=== PATIENT | female | born 2000 ===

== ENCOUNTER 2018-07-24 16:56 | Emergency (ER) | payer OTHER ==
[2018-07-24 17:06] VITALS: BP 108/73
--- NOTE | 2018-07-24 17:52 | UC ---
Shoulder Pain HPI - HPI Summary HPI Summary: PATIENT STATES SHE WAS WOKEN FROM SLEEP LAST NIGHT WITH RIGHT SHOULDER PAIN. SHE REPORTS HAVING MULTIPLE EPISODES OF SPONTANEOUS SHOULDER DISLOCATIONS WHILE IN HIGH SCHOOL. MOST RECENT EPISODE WAS 2 YEARS AGO. STATES HER MOM WOULD JUST POP IT BACK INTO PLACE. SHE THINKS HER SHOULDER IS AGAIN DISLOCATED TODAY. SHE STATES SURGERY WAS RECOMMENDED AT ONE TIME BUT SHE DID NOT FOLLOW- UP ON THIS. - History of Current Complaint Chief Complaint: UCUpperExtremity Stated Complaint: SHOULDER INJURY Time Seen by Provider: 07/24/18 17:29 Hx Obtained From: Patient Hx Last Menstrual Period: Jul 10, 2018 Onset/Duration: Sudden Onset, Lasting Hours, Still Present Timing: Constant Severity Initially: Moderate Severity Currently: Moderate Location Of Pain: Is Discrete @ - RIGHT SHOULDER Pain Intensity: 7 Pain Scale Used: 0-10 Numeric Character: Sharp, Aching Aggravating Factor(s): Movement Alleviating Factor(s): Nothing Associated Signs And Symptoms: Positive: Negative Related History: Dominant Hand Right - Allergies/Home Medications Allergies/Adverse Reactions: Allergies Allergy/AdvReac Type Severity Reaction Status Date / Time Penicillins Allergy Difficulty Verified 07/24/18 17:07 Breathing Home Medications: Home Medications NK [No Home Medications Reported] 07/24/18 [History Confirmed 07/24/18] PMH/Surg Hx/FS Hx/Imm Hx Previously Healthy: Yes - Surgical History Surgical History: None - Family History Known Family History: Positive: Non-Contributory - Social History Alcohol Use: Occasionally Substance Use Type: None Smoking Status (MU): Never Smoked Tobacco Review of Systems All Other Systems Reviewed And Are Negative: Yes Constitutional: Positive: Negative Skin: Positive: Negative Respiratory: Positive: Negative Cardiovascular: Positive: Negative Gastrointestinal: Positive: Negative Musculoskeletal: Positive: Arthralgia, Decreased ROM Physical Exam Triage Information Reviewed: Yes Appearance: Well-Appearing, No Pain Distress, Well-Nourished Vital Signs: Initial Vital Signs Temp 98.7 F 07/24/18 17:03 Pulse 62 07/24/18 17:03 Resp 12 07/24/18 17:03 BP 108/73 07/24/18 17:03 Pulse Ox 100 07/24/18 17:03 Vital Signs Reviewed: Yes Eyes: Positive: Conjunctiva Clear ENT: Positive: Hearing grossly normal Neck: Positive: Supple Respiratory: Positive: No respiratory distress, No accessory muscle use Cardiovascular: Positive: Pulses Normal Abdomen Description: Positive: Soft Musculoskeletal: Positive: No Edema, ROM Limited @ - RIGHT SHOULDER ROM LIMITED BUT NOT ABSENT, Other: - TTP DIFFUSELY OVER RIGHT SHOULDER BUT MOSTLY OVER SCAPULA. NO SHOULDER DISLOCATION. Neurological: Positive: Alert Psychological: Positive: Age Appropriate Behavior Skin: Negative: Rashes Diagnostics - Radiology RIGHT SHOULDER XRAY Radiology Interpretation Completed By: Radiologist Summary of Radiographic Findings: FINDINGS SUGGESTIVE OF A MILD HILL-SACHS FRACTURE. Shoulder Course/Dx - Course Course Of Treatment: ON EXAMINATION PATIENT'S SHOULDER IS NOT DISLOCATED. SHE STATES THAT WHEN SHE WAS BEING POSITIONED FOR X-RAY SHE HEARD A POP. IT IS POSSIBLE THAT SHE REDUCED HER DISLOCATION AT THIS TIME. GIVEN HER REPORTED HISTORY OF RECURRENT SHOULDER DISLOCATIONS HAVE REFERRED TO ORTHOPEDICS FOR FURTHER EVALUATION. I ALSO RECOMMENDED PHYSICAL THERAPY TO HELP STRENGTHEN THE MUSCLES THAT SUPPORT THAT JOINT. SLING FOR COMFORT. ADVISED TO DISCUSS POSSIBLE CONNECTIVE TISSUE DISORDER WITH HER PCP. Assessment/Plan: OFFICIAL RADIOLOGY REPORT RETURNED AFTER PT DISCHARGE. FINDINGS SUGGESTIVE OF A MILD HILL-SACHS FRACTURE. I CALLED PT AND NOTIFIED HER OF THIS FINDING. SHE WILL CALL ORTHO Thursday FOR AN APPT ADVISED. - Differential Dx/Diagnosis Provider Diagnosis: Right shoulder pain Discharge - Sign-Out/Discharge Documenting (check all that apply): Patient Departure All imaging exams completed and their final reports reviewed: Yes - Discharge Plan Condition: Stable Disposition: HOME Patient Education Materials: Shoulder Separation Exercises (GEN), Shoulder Pain (ED) Referrals: Andrey Fall MD [Medical Doctor] - 1 Week Additional Instructions: AT THE TIME OF EVALUATION YOUR SHOULDER WAS NOT DISLOCATED. IT'S POSSIBLE THAT YOU POPPED IT IN ON YOUR OWN WHILE YOU WERE BEING POSITIONED FOR X-RAY. WEAR THE SLING NEEDED FOR COMFORT TO OFFLOAD PRESSURE FROM YOUR SHOULDER JOINT. PHYSICAL THERAPY REFERRAL PROVIDED TODAY. THIS CAN BE QUITE HELPFUL IN STRENGTHENING THE MUSCLES THAT STABILIZE YOUR SHOULDER. GIVEN YOUR HISTORY OF RECURRENT SHOULDER DISLOCATIONS I WOULD STRONGLY RECOMMEND YOU FOLLOW-UP WITH AN ORTHOPEDIST TO FURTHER DISCUSS TREATMENT. I WOULD ALSO CONSIDER FOLLOWING UP WITH YOUR PRIMARY CARE PHYSICIAN TO DISCUSS EVALUATION FOR A POSSIBLE CONNECTIVE TISSUE DISORDER. GO TO THE EMERGENCY ROOM IF YOU DISLOCATE YOUR SHOULDER AGAIN OR IF YOU DEVELOP NUMBNESS, TINGLING OR COLOR CHANGE IN YOUR HAND. - Billing Disposition and Condition Condition: STABLE Disposition: Home
== END 2018-07-24 18:04 | disposition home or self-care (01) ==
LOC: UCEAST 16:56
DX: M25.511 Pain in right shoulder (principal); Z88.0 Allergy status to penicillin
CPT/HCPCS: 99202; G0463

== ENCOUNTER 2018-07-25 21:45 | Emergency (ER) | payer SELFPAY ==
--- NOTE | 2018-07-25 23:45 | ED ---
Lower Extremity - HPI Summary HPI Summary: 17 year old female presents with left knee dislocation. She states that it took her a half an hour to get the knee back in. She states is not currently dislocated. She has history of multiple dislocations to her knees and shoulder. She is follow-up with ortho this week as she states she just dislocated her shoulder a couple days ago. She states that when she tries to put weight on the knee feels like it give out. She denies any numbness or tingling. - History of Current Complaint Chief Complaint: EDExtremityLower Stated Complaint: LEFT KNEE INJURY Time Seen by Provider: 07/25/18 23:37 Hx Last Menstrual Period: Jul 10, 2018 Pain Intensity: 7 - Allergies/Home Medications Allergies/Adverse Reactions: Allergies Allergy/AdvReac Type Severity Reaction Status Date / Time Penicillins Allergy Difficulty Verified 07/24/18 17:07 Breathing Home Medications: Home Medications Naproxen Sodium [Aleve] 2 tab PO Q12HR 07/25/18 [History Confirmed 07/25/18] PMH/Surg Hx/FS Hx/Imm Hx Respiratory History: Denies: Hx Asthma Infectious Disease History: No Infectious Disease History: Denies: Traveled Outside the [place] in Last 30 Days - Family History Known Family History: Positive: Non-Contributory - Social History Alcohol Use: Occasionally Substance Use Type: Reports: None Smoking Status (MU): Never Smoked Tobacco Review of Systems Negative: Fever Negative: Chest Pain Negative: Shortness Of Breath Positive: Myalgia - left knee pain All Other Systems Reviewed And Are Negative: Yes Physical Exam Triage Information Reviewed: Yes Vital Signs On Initial Exam: Initial Vitals Temp Pulse Resp BP Pulse Ox 99.0 F 80 16 117/58 95 07/25/18 21:46 07/25/18 21:46 07/25/18 21:46 07/25/18 21:46 07/25/18 21:46 Vital Signs Reviewed: Yes Appearance: Positive: Well-Appearing Skin: Positive: Warm, Dry Head/Face: Positive: Normal Head/Face Inspection Eyes: Positive: Normal, Conjunctiva Clear ENT: Positive: Pharynx normal Respiratory/Lung Sounds: Positive: Clear to Auscultation, Breath Sounds Present Cardiovascular: Positive: Normal, RRR Musculoskeletal: Positive: Strength/ROM Intact - left knee, Other - minimial tenderness left patella, good pulses Neurological: Positive: Normal Psychiatric: Positive: Normal Diagnostics - Vital Signs Vital Signs Temp Pulse Resp BP Pulse Ox 07/25/18 21:46 99.0 F 80 16 117/58 95 - Laboratory Lab Statement: Any lab studies that have been ordered have been reviewed, and results considered in the medical decision making process. - Radiology knee Radiology Interpretation Completed By: ED Physician Summary of Radiographic Findings: no fracture Lower Extremity Course/Dx - Course Course Of Treatment: 17 year old female presents with left knee dislocation. She states that it took her a half an hour to get the knee back in. She states is not currently dislocated. She has history of multiple dislocations to her knees and shoulder. She is follow-up with ortho this week as she states she just dislocated her shoulder a couple days ago. She states that when she tries to put weight on the knee feels like it give out. She denies any numbness or tingling On exam tenderness over left patella. neurovascular intact. X-ray shows no current dislocation. Gave knee immobilizer. Told to follow-up with orthopedic. Patient understands agrees with plan. - Diagnoses Differential Diagnosis/HQI/PQRI: Positive: Fracture (Closed), Sprain, Strain Provider Diagnoses: Left knee dislocation Discharge - Sign-Out/Discharge Documenting (check all that apply): Patient Departure Patient Received Moderate/Deep Sedation with Procedure: No - Discharge Plan Condition: Good Disposition: HOME Patient Education Materials: Knee Dislocation (ED) Referrals: No Primary Care Phys,NOPCP [Primary Care Provider] - Additional Instructions: Use immobilizer as meeded Ice, elevate, Ibuprofen or Tylenol every 6 hours for pain Follow up with ortho Return to ED if develop or any new or worsening symptoms - Billing Disposition and Condition Condition: GOOD Disposition: Home
[2018-07-25 23:57] VITALS: BP 110/66
== END 2018-07-25 23:56 | disposition home or self-care (01) ==
LOC: ED 21:45
DX: S83.105A Unspecified dislocation of left knee, initial encounter (principal); X58.XXXA Exposure to other specified factors, initial encounter; Y92.9 Unspecified place or not applicable; Z88.0 Allergy status to penicillin
CPT/HCPCS: 99282

== ENCOUNTER 2019-04-18 16:41 | Emergency (ER) | payer OTHER ==
[2019-04-18 17:18] VITALS: BP 111/70
[2019-04-18] MEDS ORDERED: Acetaminophen TAB* 325 MG PO ONE (18:17)
--- NOTE | 2019-04-18 18:49 | UC ---
Dizzy HPI HPI Summary: 18 yo female got up quickly from toilet bowl this am and passed out stiking her left occiput when she woke up she attempted to get up and passed out again has a ATWOOD (holocranial0 Has photo and phonophobia no neck pain no CP/SOB/palpitations no prior hx of faints today has felt a little weak and dizzy - History Of Current Complaint Chief Complaint: UCHeadInjury Stated Complaint: HEADACHE FAINTED Time Seen by Provider: 04/18/19 18:07 Hx Obtained From: Patient Hx Last Menstrual Period: Jul 10, 2018 Onset/Duration: Sudden Onset, Other Severity Initially: Severe Severity Currently: Severe Pain Intensity: 8 Pain Scale Used: 0-10 Numeric Character: Lightheaded, Dizzy Aggravating Factor(s): Nothing Alleviating Factor(s): Rest Associated Signs And Symptoms: Positive: Tinnitus - slight, Decreased Oral Intake. Negative: Nausea, Vomiting, Diaphoresis, Chest Pain, SOB, Palpitations , Unsteady Gait, Visual Changes, Change In Medication, Change In Diet, OTC Medications - Allergies/Home Medications Allergies/Adverse Reactions: Allergies Allergy/AdvReac Type Severity Reaction Status Date / Time Penicillins Allergy Difficulty Verified 07/24/18 17:07 Breathing PMH/Surg Hx/FS Hx/Imm Hx Previously Healthy: Yes - Surgical History Surgical History: None - Family History Known Family History: Positive: Non-Contributory - Social History Alcohol Use: Occasionally Substance Use Type: None Smoking Status (MU): Never Smoked Tobacco Review of Systems All Other Systems Reviewed And Are Negative: Yes Constitutional: Positive: Negative Skin: Positive: Negative Eyes: Positive: Photophobia ENT: Positive: Negative Respiratory: Positive: Negative Cardiovascular: Positive: Negative Gastrointestinal: Positive: Negative Genitourinary: Positive: Negative Motor: Positive: Negative Neurovascular: Positive: Negative Musculoskeletal: Positive: Negative Neurological: Positive: Headache Psychological: Positive: Negative Physical Exam Triage Information Reviewed: Yes Appearance: Well-Appearing, No Pain Distress, Well-Nourished Vital Signs: Initial Vital Signs Temp 99.9 F 04/18/19 16:50 Pulse 74 04/18/19 16:50 Resp 22 04/18/19 16:50 BP 117/59 04/18/19 16:50 Pulse Ox 100 04/18/19 16:50 Vital Signs Reviewed: Yes Eyes: Positive: Conjunctiva Clear, Other: - EOMI/PERRL ENT: Positive: Hearing grossly normal, Uvula midline. Negative: Nasal congestion, Nasal drainage, Tonsillar swelling, Tonsillar exudate, Trismus, Muffled voice, Hoarse voice Dental Exam: Normal Neck: Positive: Supple, Nontender, No Lymphadenopathy Respiratory: Positive: Lungs clear, Normal breath sounds, No respiratory distress, No accessory muscle use Cardiovascular: Positive: RRR, No Murmur Musculoskeletal: Positive: ROM Intact, No Edema Neurological Exam: Normal Neurological: Positive: Alert, Other: - cn2-12 intact, GCS 15/15, strength 5/5/ , (-) Rhomberg, normal gait, brisk and symmetrical knee jerks Psychological Exam: Normal Skin Exam: Normal Diagnostics - Radiology No standard instances Radiology Interpretation Completed By: Radiologist Summary of Radiographic Findings: CT brain: negative - EKG Cardiac Rate: NL Cardiac Rhythm: Sinus: Normal Ectopy: None ST Segment: Normal Re-Evaluation - Re-Evaluation First Eval Re-Evaluation Time: 19:46 Change: Improved - headache decreased-ambulating without difficulty Dizzy Course/Dx - Differential Dx/Diagnosis Provider Diagnosis: Syncope, Concussion Discharge ED - Sign-Out/Discharge Documenting (check all that apply): Patient Departure All imaging exams completed and their final reports reviewed: Yes - Discharge Plan Condition: Stable Disposition: HOME Patient Education Materials: Concussion (ED), Syncope (DC) Referrals: No Primary Care Phys,NOPCP [Primary Care Provider] - [facility] [place] PHYSICIAN REFERRAL [Outside] - 1 Week (if not better) Additional Instructions: rest ice tylenol ekg and CT normal blood work pending recheck for new or worsening symptoms - Billing Disposition and Condition Condition: STABLE Disposition: Home
[2019-04-19 11:34] LABS: ABS Eosinophils 0.1 10^3/ul (0-0.6); ABS Lymphocytes 1.4 10^3/ul (1.0-4.8); ABS Neutrophils 4.2 10^3/ul (1.5-7.7); Eosinophil % 1.2 %; Hematocrit 39 % (35-47); Lymphocyte % 20.6 %; Mean Corpuscular HGB Conc 34 g/dL (31-36); Mean Corpuscular Hemoglobin 28 pg (27-31); Mean Corpuscular Volume 82 fL (80-97); Mean Platelet Volume 10.1 fL (7.4-10.4); Platelet Count 246 10^3/uL (150-450); Red Cell Distribution Width 17 % (10-15); White Blood Count 6.7 10^3/uL (3.5-10.8)
[2019-04-19 11:43] LABS: BUN/Creatinine Ratio 22.9 (8-20); Calcium 9.4 mg/dL (8.6-10.3); EGFR African American 129.1 (>60); EGFR Non-African American 106.7 (>60); Potassium 3.9 mmol/L (3.5-5.0)
--- NOTE | 2019-04-19 18:10 | UC ---
- Progress Note Progress Note: labs wnl, follow up with PCP for further work up. -Tati Byers PAC Course/Dx - Diagnoses Provider Diagnoses: Syncope, Concussion Discharge ED - Sign-Out/Discharge Documenting (check all that apply): Patient Departure All imaging exams completed and their final reports reviewed: Yes - Discharge Plan Condition: Stable Disposition: HOME Patient Education Materials: Syncope (DC), Concussion (ED) Forms: *School Release Referrals: [facility] [place] [facility]IAN REFERRAL [Outside] - 1 Week (if not better) No Primary Care Phys,NOPCP [Primary Care Provider] - Additional Instructions: rest ice tylenol ekg and CT normal blood work pending recheck for new or worsening symptoms - Billing Disposition and Condition Condition: STABLE Disposition: Home
== END 2019-04-18 20:15 | disposition home or self-care (01) ==
LOC: UCEAST 16:41
DX: R55 Syncope and collapse (principal); S06.0X0A Concussion without loss of consciousness, initial encounter; H53.149 Visual discomfort, unspecified; Z88.0 Allergy status to penicillin; X58.XXXA Exposure to other specified factors, initial encounter; Y92.9 Unspecified place or not applicable
CPT/HCPCS: 36415; 70450; 80048; 81003; 84702; 85025; 99202; A9270-GY; G0463

== ENCOUNTER 2019-04-29 20:02 | Emergency (ER) | payer OTHER ==
[2019-04-29 20:17] VITALS: BP 109/71
[2019-04-29] MEDS ORDERED: Ondansetron ODT TAB* 4 MG PO ONE (20:35)
--- NOTE | 2019-04-29 20:41 | UC ---
Abdominal Pain Female HPI - HPI Summary HPI Summary: 18-year-old female comes in with a chief complaint of abdominal pain. This started about an hour ago. It's diffuse. It's an 8 out of 10. She does have some nausea. She has had a fever. 2 days ago patient woke up with a runny nose and Diffuse generalized headache. She also has a sore throat. Today she went to her [facility] and was diagnosed with sinusitis and started on a azithromycin. She took 2 pills of a azithromycin about 3 hours ago. The abdominal pain started 1 hour ago. Denies any urinary symptoms or change in bowel. On April 18, 2019 patient struck her head and had a negative head CT. She had a diffuse generalized headache until 5 days ago. Since the injury the headache gradually dissipated until it was gone 5 days ago. For 2 days she was completely asymptomatic of a headache. Today she has a headache that's an 8 out of 10 and diffuse. No photophobia. She does have some neck pain. - History of Current Complaint Chief Complaint: UCAbdominalPain Stated Complaint: STOMACH PAIN, HEADACHE Time Seen by Provider: 04/29/19 20:12 Hx Last Menstrual Period: 04/24/19 Pain Intensity: 8 Allergies/Adverse Reactions: Allergies Allergy/AdvReac Type Severity Reaction Status Date / Time amoxicillin Allergy Difficulty Verified 04/29/19 20:19 Breathing clavulanic acid Allergy Difficulty Verified 04/29/19 20:19 [From Augmentin] Breathing Penicillins Allergy Difficulty Verified 07/24/18 17:07 Breathing Home Medications: Home Medications Azithromyxin ORLY (NF) [Z-Orly (Zithromax) 250 mg tabs #6] 2 tab PO .TODAY, THEN 1 DAILY 04/29/19 [History Confirmed 04/29/19] Triamcinolone NASAL SPRAY* [Nasacort AQ Nasal [place]*] 1 puff NASAL DAILY WITH MEAL 04/29/19 [History Confirmed 04/29/19] PMH/Surg Hx/FS Hx/Imm Hx Previously Healthy: Yes Other Neurological History: CONCUSSION - Surgical History Surgical History: None - Family History Known Family History: Positive: Non-Contributory - Social History Alcohol Use: None Substance Use Type: None Smoking Status (MU): Never Smoked Tobacco Review of Systems All Other Systems Reviewed And Are Negative: Yes Constitutional: Positive: Fever, Other - SEE HPI Skin: Positive: Negative Eyes: Positive: Negative ENT: Positive: Sore Throat, Nasal Discharge, Sinus Congestion Respiratory: Positive: Negative Cardiovascular: Positive: Negative Gastrointestinal: Positive: Abdominal Pain, Nausea Genitourinary: Positive: Negative Motor: Positive: Negative Neurovascular: Positive: Negative Musculoskeletal: Positive: Negative Neurological: Positive: Negative Psychological: Positive: Negative Is Patient Immunocompromised?: No Physical Exam Triage Information Reviewed: Yes Appearance: Well-Nourished, Ill-Appearing - MILD, Pain Distress - MILD Vital Signs: Initial Vital Signs Temp 100.0 F 04/29/19 20:10 Pulse 77 04/29/19 20:10 Resp 18 04/29/19 20:10 BP 109/71 04/29/19 20:10 Pulse Ox 98 04/29/19 20:10 Vital Signs Reviewed: Yes Eye Exam: Normal Eyes: Positive: Conjunctiva Clear ENT: Positive: Pharyngeal erythema, Nasal congestion, TMs normal - No hemotympanum Neck: Positive: Supple Respiratory: Positive: Lungs clear, Normal breath sounds, No respiratory distress Cardiovascular: Positive: RRR Musculoskeletal: Positive: Strength Intact, ROM Intact Neurological: Positive: Alert, Muscle Tone Normal Psychological: Positive: Age Appropriate Behavior Skin Exam: Normal Abd Pain Female Course/Dx - Course Course Of Treatment: In clinic I gave the patient Zofran 4 mg ODT. Her abdominal pain decreased to a 6 out of 10 from an 8 out of 10. Who is worst around the umbilicus but also the right lower quadrant., I am Unable to completely rule out appendicitis here in clinic. Patient also has a diffuse headache low-grade fever posterior neck stiffness and I cannot rule out meningitis. Patient first came here to clinic she was in moderate to severe pain. Her pain has decreased however I recommended going to the emergency department for further evaluation and care. - Differential Dx/Diagnosis Provider Diagnosis: Abdominal pain, Headache, Fever Discharge ED - Sign-Out/Discharge Documenting (check all that apply): Patient Departure All imaging exams completed and their final reports reviewed: No Studies - Discharge Plan Condition: Stable Disposition: HOME-RECOMMEND TO ED Patient Education Materials: Acute Abdominal Pain (ED) Referrals: [facility] @ [Outside] Additional Instructions: GO DIRECTLY TO THE EMERGENCY DEPARTMENT FOR FURTHER EVALUATION OF YOUR ABDOMINAL PAIN, FEVER AND HEADACHE. - Billing Disposition and Condition Condition: STABLE Disposition: Home-Recommend to ED
== END 2019-04-29 21:32 | disposition home health service (06) ==
LOC: UCEAST 20:02
DX: R10.84 Generalized abdominal pain (principal); R51 Headache; R50.9 Fever, unspecified; R11.0 Nausea; M54.2 Cervicalgia; J02.9 Acute pharyngitis, unspecified; J34.89 Other specified disorders of nose and nasal sinuses; Z88.0 Allergy status to penicillin
CPT/HCPCS: 81003; 84702; 87651; 99212; A9270-GY; G0463

== ENCOUNTER 2019-04-29 21:44 | Emergency (ER) | payer SELFPAY ==
--- NOTE | 2019-04-30 00:21 | ED ---
Complex/Multi-Sys Presentation - HPI Summary HPI Summary: This pt is a 18 Y/O F presenting to [facility] with a CC of abdominal pain that is currently rated a 7/10 in severity. She states that two weeks ago on 04/18/19 she received a concussion after fainting in her bathroom and hitting her head on the floor. She states that she was feeling better until 04/27/19 when she woke up at 0300 and had a sore throat, chills, and ringing in her ears. She was diagnosed with a sinus infection and was given a Z-pack from the CC. Today she states that she started to have abdominal pains around her umbilical region 2 hours after taking her ABx. She also states that the ringing in her ears is increasing and she has been nauseas since she woke up this morning. She stats that she had a fever of 100 F 1 hour [employer]. She denies any diarrhea and vomiting. She has no aggravating or alleviating symptoms and has no pertinent PMHx. She states that she does not drink or use any substances. - History Of Current Complaint Chief Complaint: EDAbdPain Hx Obtained From: Patient Onset/Duration: Sudden Onset, Still Present, Worse Since - today Timing: Constant Severity Currently: Moderate - 7/10 Severity Initially: Mild Location: Pain At: - umbilical region Aggravating Factor(s): nothing Alleviating Factor(s): nothing Associated Signs And Symptoms: Positive: Headache, Nausea, Abdominal Pain - umbilical, Fever - 100 F, Other - sore throat, chills, ringing in her ears. Negative: Vomiting, Diarrhea - Allergies/Home Medications Allergies/Adverse Reactions: Allergies Allergy/AdvReac Type Severity Reaction Status Date / Time amoxicillin Allergy Difficulty Verified 04/29/19 20:19 Breathing clavulanic acid Allergy Difficulty Verified 04/29/19 20:19 [From Augmentin] Breathing Penicillins Allergy Difficulty Verified 07/24/18 17:07 Breathing PMH/Surg Hx/FS Hx/Imm Hx Previously Healthy: Yes Endocrine/Hematology History: Denies: Hx Diabetes, Hx Thyroid Disease Cardiovascular History: Denies: Hx Hypertension Respiratory History: Denies: Hx Asthma, Hx Chronic Obstructive Pulmonary Disease (COPD) GI History: Denies: Hx Ulcer - Surgical History Surgical History: None - Immunization History Immunizations Up to Date: Yes Infectious Disease History: No Infectious Disease History: Denies: Hx Hepatitis, Hx Human Immunodeficiency Virus (HIV), Traveled Outside the [place] in Last 30 Days - Family History Known Family History: Positive: Other - Breast CA Negative: Hypertension - Social History Occupation: Student - [employer] Lives: Dormitory/Roommates Alcohol Use: None Hx Substance Use: No Substance Use Type: Reports: None Hx Tobacco Use: No Smoking Status (MU): Never Smoked Tobacco Review of Systems Positive: Fever - 100 F, Chills ENT: Other - ear ringing Positive: Sore Throat Positive: Abdominal Pain - umbilical region , Nausea. Negative: Vomiting, Diarrhea Positive: Headache All Other Systems Reviewed And Are Negative: Yes Physical Exam - Summary Physical Exam Summary: Appearance: Well-appearing, Well-nourished, lying in bed comfortably Skin: Warm, dry, no obvious rash Eyes: sclera anicteric, no conjunctival pallor ENT: mucous membranes moist, pharynx appears normal Neck: Supple, nontender Respiratory: Clear to auscultation, no signs of respiratory distress Cardiovascular: Normal S1, S2. No murmurs. Normal distal pulses in tibial and radial bilaterally. Abdomen: Soft, nontender, normal active bowel sounds present Musculoskeletal: Normal, Strength/ROM Intact Neurological: A&Ox3, awake and alert, mentation is normal, speech is fluent and appropriate Psychiatric: affect is normal, does not appear anxious or depressed Triage Information Reviewed: Yes Vital Signs On Initial Exam: Initial Vitals Temp Pulse Resp BP Pulse Ox 99.3 F 88 18 130/86 98 04/29/19 21:47 04/29/19 21:47 04/29/19 21:47 04/29/19 21:47 04/29/19 21:47 Vital Signs Reviewed: Yes Procedures - Sedation Patient Received Moderate/Deep Sedation with Procedure: No Diagnostics - Vital Signs Vital Signs Temp Pulse Resp BP Pulse Ox 04/29/19 23:56 97.7 F 80 18 128/71 98 04/29/19 21:47 99.3 F 88 18 130/86 98 - Laboratory Result Diagrams: 04/30/19 00:48 04/30/19 01:35 Lab Statement: Any lab studies that have been ordered have been reviewed, and results considered in the medical decision making process. - Radiology CXR Radiology Interpretation Completed By: ED Physician Summary of Radiographic Findings: No acute processes. Pending offical review. Complex Multi-Symp Course/Dx Course Of Treatment: This pt is a 18 Y/O F presenting to [facility] with a CC of abdominal pain that is currently rated a 7/10 in severity. She states that two weeks ago on 04/18/19 she received a concussion after fainting in her bathroom and hitting her head on the floor. She states that she was feeling better until 04/27/19 when she woke up at 0300 and had a sore throat, chills, and ringing in her ears. She was diagnosed with a sinus infection and was given a Z-pack from the CC. Her PE found no abnormalities. She was given Meclizine and Zofran during her ED course. Her CXR found no acute processes. She has abnormal labratory values in the following areas: WBC, RDW, Absolute neuts and monos, Lactic Acid, C-Reactive proteins, Globulin. She did not have any abdominal pain until after taking azithromycin, prescribed for her URI. I suspect the macrolide is causing the pain. I do not think she has appendicitis or some other more serious process. She will be discharged home with a Dx of a URI, post-concussive symptoms, and acute abdominal pain. - Diagnoses Provider Diagnoses: URI (upper respiratory infection), Acute abdominal pain, Post-concussion syndrome Discharge ED - Sign-Out/Discharge Documenting (check all that apply): Patient Departure - Discharge Plan Condition: Good Disposition: HOME Prescriptions: Cefdinir cap* [Cefdinir 300 MG cap (NF)] 300 mg PO BID #20 cap Patient Education Materials: Upper Respiratory Infection (ED), Acute Abdominal Pain (ED) Referrals: [facility] @ [Outside] - 4 Days Additional Instructions: I think the abdominal pain you experienced today is likely a side effect of the azithromycin, so stop taking that. I have prescribed a different antibiotic that you can take for the respiratory infection you have. The post concussive symptoms you are experiencing may take several weeks to go away, unfortunately there is no good medication to help with the ringing in the ears. - Billing Disposition and Condition Condition: GOOD Disposition: Home - Attestation Statements Document Initiated by Scribe: Yes Documenting Scribe: Fabrizio Marie Provider For Whom Nasir is Documenting (Include Credential): Warren Solorio MD Scribe Attestation: I, Fabrizio Marie, scribed for Warren Solorio MD on 04/30/19 at 1845. Scribe Documentation Reviewed: Yes Provider Attestation: The documentation as recorded by the [email or web address] accurately reflects the service I personally performed and the decisions made by me, Warren Solorio MD Status of Scribe Document: Viewed
[2019-04-30] MEDS ORDERED: Meclizine TAB* 12.5 MG PO ONE (00:26)
[2019-04-30] MEDS ORDERED: Ondansetron INJ* 2 MG/ML VIAL IV ONE (00:26)
[2019-04-30] MEDS: NS 0.9% 1000 ML** 2,000 ML IV ONE (00:49)
[2019-04-30 00:55] LABS: ABS Eosinophils 0.1 10^3/ul (0-0.6); ABS Lymphocytes 1.6 10^3/ul (1.0-4.8); ABS Neutrophils 9.1 10^3/ul (1.5-7.7); Eosinophil % 1.2 %; Hematocrit 37 % (35-47); Hemoglobin 12.1 g/dL (12.0-16.0); Lymphocyte % 13.3 %; Mean Corpuscular HGB Conc 33 g/dL (31-36); Mean Corpuscular Hemoglobin 27 pg (27-31); Mean Corpuscular Volume 82 fL (80-97); Mean Platelet Volume 8.9 fL (7.4-10.4); Nucleated Red Blood Cells % 0.1; Platelet Count 237 10^3/uL (150-450); Red Blood Count 4.45 10^6 /uL (3.70-4.87); Red Cell Distribution Width 17 % (10-15); White Blood Count 11.9 10^3/uL (3.5-10.8)
[2019-04-30 01:12] LABS: ALT 9 U/L (7-52); Albumin 4.3 g/dL (3.2-5.2); Alkaline Phosphatase 66 U/L (34-104); BUN/Creatinine Ratio 16.1 (8-20); Blood Urea Nitrogen 10 mg/dL (6-24); C Reactive Protein 22.25 mg/L (<8.01); CO2 Carbon Dioxide 24 mmol/L (22-32); Calcium 9.3 mg/dL (8.6-10.3); Chloride 104 mmol/L (101-111); EGFR African American 148.5 (>60); EGFR Non-African American 122.7 (>60); Globulin 4.1 g/dL (2-4); Glucose 89 mg/dL (70-100); Sodium 135 mmol/L (135-145); Total Protein 8.4 g/dL (6.4-8.9)
[2019-04-30 01:18] LABS: HCG Pregnancy < 0.60 mIU/mL
[2019-04-30 01:24] LABS: Anion Gap 7 mmol/L (2-11)
[2019-04-30] MEDS ORDERED: Ketorolac INJ* 30 MG/ML 1 ML VIAL IV PUSH ONE (01:36)
[2019-04-30 02:00] LABS: Potassium Redraw 3.6 mmol/L (3.5-5.0)
[2019-04-30] MEDS ORDERED: Benzocaine/Menthol LOZ* 1 LOZENGE PO PRN (02:05)
[2019-04-30 02:09] LABS: Urine Appearance Clear; Urine Bilirubin Negative (Negative); Urine Blood Negative (Negative); Urine Color Yellow; Urine Glucose Negative (Negative); Urine Ketones Negative (Negative); Urine Nitrite Negative (Negative); Urine Protein Negative (Negative); Urine Urobilinogen Negative (Negative)
[2019-04-30 02:10] LABS: Urine Bacteria Absent (Absent); Urine Red Blood Cell Absent (Absent); Urine White Blood Cell Absent (Absent)
[2019-04-30 03:09] VITALS: BP 128/86
== END 2019-04-30 03:09 | disposition home or self-care (01) ==
LOC: ED 21:44
DX: R10.9 Unspecified abdominal pain (principal); J06.9 Acute upper respiratory infection, unspecified; F07.81 Postconcussional syndrome; Z88.1 Allergy status to other antibiotic agents; Z88.0 Allergy status to penicillin
CPT/HCPCS: 36415; 71046; 80053; 81003; 83605; 84702; 85025; 86140; 96361; 96374; 96375; 99283; A9270-GY; J1885; J2405